=== PATIENT | female | born 1980 | race African-American/Black ===

== ENCOUNTER 2018-03-02 23:17 | Inpatient (IN) | payer MEDICARE ==
[~2018-03-02] VITALS: Ht 180.3 cm; Wt 58.7 kg
[2018-03-02 23:45] VITALS: BP 111/73
[2018-03-03] VITALS (7 sets, daily range): BP systolic 97–135; BP diastolic 51–78
[2018-03-03] MEDS ORDERED: Morphine Sulfate 4mg/ml Inj (IV USE ONLY) IVP ONE
[2018-03-03 00:08] LABS: APPEARANCE,URINE CLEAR; BILIRUBIN, URINE NEGATIVE (NEGATIVE); GLUCOSE, URINE (UA) NEGATIVE (NEGATIVE); KETONES,URINE NEGATIVE (NEGATIVE); NITRITE,URINE NEGATIVE (NEGATIVE); PH,URINE 6.5 (4.5-8.0); PROTEIN,URINE NEGATIVE (NEGATIVE); UROBILINOGEN,URINE 1 MG/DL (0.0-1.0)
[2018-03-03 00:23] LABS: COLOR,URINE YELLOW; LEUKOCYTE ESTERASE ,URINE 1+ (NEGATIVE)
[2018-03-03 00:37] LABS: BASOPHILS % (AUTO) 0.5 % (0.0-2.0); EOSINOPHILS % (AUTO) 1.3 % (0.0-3.0); HEMATOCRIT 38.5 % (37.0-47.0); HEMOGLOBIN 11.7 G/DL (12.0-16.0); LYMPHOCYTES % (AUTO) 24.1 % (20.0-45.0); MEAN CORPUSCULAR VOLUME 74 FL (80-99); MONOCYTES % (AUTO) 10.5 % (1.0-10.0); NEUTROPHILS % (AUTO) 63.6 % (45.0-75.0); PLATELET COUNT 268 K/UL (150-450); RED BLOOD COUNT 5.23 M/UL (4.20-5.40); RED CELL DISTRIBUTION WIDTH 17.3 % (11.6-14.8); WHITE BLOOD COUNT 7.4 K/UL (4.8-10.8)
[2018-03-03 00:51] LABS: ANION GAP 8 mmol/L (5-15); BLOOD UREA NITROGEN 8 mg/dL (7-18); CALCIUM 9.9 MG/DL (8.5-10.1); CARBON DIOXIDE 26 MMOL/L (21-32); CHLORIDE 102 MMOL/L (98-107); CREATININE 1.2 MG/DL (0.55-1.30); SODIUM 136 MMOL/L (136-145)
[2018-03-03 01:01] LABS: ALANINE AMINOTRANSFERASE 66 U/L (12-78); ALBUMIN/GLOBULIN RATIO 0.9 (1.0-2.7); ALKALINE PHOSPHATASE 112 U/L (46-116); ASPARTATE AMINO TRANSFERASE 41 U/L (15-37); BILIRUBIN,TOTAL 0.3 MG/DL (0.2-1.0); CREATINE KINASE 44 U/L (26-308)
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
[2018-03-03] MEDS ORDERED: ZOLOFT100 MG ORAL (02:21)
[2018-03-03] MEDS ORDERED: HYDROCODON-ACE1 EA15 ORAL (02:21)
[2018-03-03] MEDS ORDERED: DIPHENHYDRAMINE PO (02:21)
[2018-03-03] MEDS ORDERED: MONTELUKAST SOD10 MG ORAL (02:21)
[2018-03-03] MEDS ORDERED: ACETAMINOPHEN PO (02:21)
[2018-03-03] MEDS ORDERED: FLUCONAZOLE100 MG ORAL (02:21)
[2018-03-03] MEDS ORDERED: KLONOPIN0.5 MG ORAL (02:21)
[2018-03-03] MEDS ORDERED: ZOFRAN4 M3 ORAL (02:21)
[2018-03-03] MEDS ORDERED: OXYCODONE HCL10 MG ORAL (02:21)
[2018-03-03] MEDS ORDERED: Norco 5mg/325mg tab ORAL PRN ×3 (04:15→15:30)
[2018-03-03] MEDS ORDERED: oxyCODONE 5mg IR tab ORAL PRN ×2 (04:15→05:15)
[2018-03-03] MEDS: Fluconazole 100mg tab ORAL SCH (09:43)
[2018-03-03] MEDS: clonazePAM 0.5mg tab ORAL SCH ×2 (09:43→18:07)
--- NOTE | 2018-03-03 11:34 | Diagnostic Imaging Report ---
Indication: Cough Technique: One view of the chest Comparison: none Findings: Lungs and pleural spaces are clear. Heart size is normal Impression: No acute process
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
--- NOTE | 2018-03-03 15:33 | Consultation ---
History of Present Illness General Date patient seen: Mar 03, 2018 Chief Complaint: Present Illness Allergies: Coded Allergies: CHEESE (Verified Allergy, Unknown, 03/03/18) EGG (Verified Allergy, Unknown, 03/03/18) IBUPROFEN (Verified Adverse Reaction, Unknown, 03/02/18) nausea Medication History Scheduled Acetaminophen/Diphenhydramine (Mapap Pm Caplet), 2 EACH PO THREE TIMES A DAY, ( Reported) Clonazepam* (Klonopin*), 0.5 MG ORAL BID, (Reported) Fluconazole (Fluconazole), 100 MG ORAL DAILY, (Reported) Montelukast Sodium* (Montelukast Sodium*), 10 MG ORAL DAILY, (Reported) Sertraline Hcl* (Zoloft*), 100 MG ORAL BEDTIME, (Reported) Scheduled PRN Hydrocodone/Acetaminophen 5-325* (Hydrocodone/Acetaminophen 5-325*), 1 TAB ORAL Q6H PRN for For Pain, (Reported) Ondansetron* (Zofran*), 4 MG ORAL Q6H PRN for Nausea & Vomiting, (Reported) Oxycodone Hcl* (Oxycodone Hcl*), 10 MG ORAL Q4H PRN for For Pain, (Reported) Patient History Healthcare decision maker Resuscitation status Full Code Advanced Directive on File No Physical Exam Last 24 Hour Vital Signs Date Time Temp Pulse Resp B/P (MAP) Pulse Ox O2 Delivery O2 Flow Rate FiO2 03/03/18 12:00 98.1 76 18 99/51 (67) 100 98.1 03/03/18 09:00 Room Air 03/03/18 08:00 98.2 73 18 99/56 (70) 98 98.2 03/03/18 03:58 98.0 80 18 135/62 (86) 100 98.0 03/03/18 03:32 Room Air 03/03/18 03:16 97.6 75 15 116/72 100 Room Air 03/03/18 03:16 97.6 75 15 116/72 100 Room Air 97.6 03/03/18 02:00 76 13 115/78 100 Room Air 03/03/18 00:34 98.2 03/02/18 23:45 89 16 03/02/18 23:45 98.2 16 111/73 99 98.2 03/02/18 23:21 98.3 89 16 111/73 99 98.2 Intake and Output 03/02/18 03/03/18 19:00 07:00 Intake Total 75 ml Balance 75 ml Intake IV Total 75 ml # Voids 2 Laboratory Tests Test 03/02/18 23:26 03/03/18 00:10 Urine Color Yellow Urine Appearance Clear Urine pH 6.5 (4.5-8.0) Urine Specific [place] 1.010 (1.005-1.035) Urine Protein Negative (NEGATIVE) Urine Glucose (UA) Negative (NEGATIVE) Urine Ketones Negative (NEGATIVE) Urine Blood Negative (NEGATIVE) Urine Nitrite Negative (NEGATIVE) Urine Bilirubin Negative (NEGATIVE) Urine Urobilinogen 1 MG/DL (0.0-1.0) H Urine Leukocyte Esterase 1+ (NEGATIVE) H Urine RBC 0-2 /HPF (0 - 2) Urine WBC 2-4 /HPF (0 - 2) Urine Squamous Epithelial Cells Many /LPF (NONE/OCC) H Urine Bacteria Few /HPF (NONE) Urine HCG, Qualitative Negative (NEGATIVE) White Blood Count 7.4 K/UL (4.8-10.8) Red Blood Count 5.23 M/UL (4.20-5.40) Hemoglobin 11.7 G/DL (12.0-16.0) L Hematocrit 38.5 % (37.0-47.0) Mean Corpuscular Volume 74 FL (80-99) L Mean Corpuscular Hemoglobin 22.4 PG (27.0-31.0) L Mean Corpuscular Hemoglobin Concent 30.5 G/DL (32.0-36.0) L Red Cell Distribution Width 17.3 % (11.6-14.8) H Platelet Count 268 K/UL (150-450) Mean Platelet Volume 8.9 FL (6.5-10.1) Neutrophils (%) (Auto) 63.6 % (45.0-75.0) Lymphocytes (%) (Auto) 24.1 % (20.0-45.0) Monocytes (%) (Auto) 10.5 % (1.0-10.0) H Eosinophils (%) (Auto) 1.3 % (0.0-3.0) Basophils (%) (Auto) 0.5 % (0.0-2.0) Prothrombin Time 10.7 SEC (9.30-11.50) Prothromb Time International Ratio 1.0 (0.9-1.1) Activated Partial Thromboplast Time 30 SEC (23-33) Sodium Level 136 MMOL/L (136-145) Potassium Level 4.0 MMOL/L (3.5-5.1) Chloride Level 102 MMOL/L (98-107) Carbon Dioxide Level 26 MMOL/L (21-32) Anion Gap 8 mmol/L (5-15) Blood Urea Nitrogen 8 mg/dL (7-18) Creatinine 1.2 MG/DL (0.55-1.30) Estimat Glomerular Filtration Rate > 60 mL/min (>60) Glucose Level 85 MG/DL (74-106) Lactic Acid Level 1.50 mmol/L (0.4-2.0) Calcium Level 9.9 MG/DL (8.5-10.1) Total Bilirubin 0.3 MG/DL (0.2-1.0) Aspartate Amino Transf (AST/SGOT) 41 U/L (15-37) H Alanine Aminotransferase (ALT/SGPT) 66 U/L (12-78) Alkaline Phosphatase 112 U/L (46-116) Total Creatine Kinase 44 U/L (26-308) Pro-B-Type Natriuretic Peptide 21 pg/mL (0-125) Total Protein 8.7 G/DL (6.4-8.2) H Albumin 4.0 G/DL (3.4-5.0) Globulin 4.7 g/dL Albumin/Globulin Ratio 0.9 (1.0-2.7) L Lipase 283 U/L (73-393) Height (Feet): 5 Height (Inches): 11.00 Weight (Pounds): 130 Medications Current Medications Medications (Trade) Dose Ordered Sig/Bernadette Route PRN Reason Start Time Stop Time Status Last Admin Dose Admin Acetaminophen/ Hydrocodone Bitart ([place] 5/325) 1 tab Q6H PRN ORAL pain 4-6 03/03/18 05:15 03/10/18 05:14 Clonazepam (KlonoPIN) 0.5 mg BID ORAL 03/03/18 09:00 03/10/18 08:59 03/03/18 09:43 Fluconazole (Diflucan) 100 mg DAILY ORAL 03/03/18 09:00 03/10/18 08:59 03/03/18 09:43 Montelukast Sodium (Singulair) 10 mg QPM ORAL 03/03/18 16:30 04/02/18 16:29 Ondansetron HCl (Zofran) 4 mg Q6H PRN ORAL Nausea & Vomiting 03/03/18 04:15 04/02/18 04:14 Oxycodone HCl (Roxicodone) 10 mg Q4H PRN ORAL pain 7-10 03/03/18 05:15 03/10/18 05:14 03/03/18 05:13 Sertraline HCl (Zoloft) 100 mg BEDTIME ORAL 03/03/18 21:00 04/02/18 20:59 Sodium Chloride 1,000 ml @ 75 mls/hr [id number] IV 03/03/18 04:30 04/02/18 04:29 03/03/18 05:14 Assessment/Plan Assessment/Plan (1) Dysphagia (2) Throat pain (3) H/o Esophagitis (4) Neuropathic pain seen dictated Joss Garcia Mar 03, 2018 15:33
[2018-03-03] MEDS: Montelukast 10mg tablet ORAL SCH (16:40)
[2018-03-03] MEDS: Sertraline 100mg tab ORAL SCH (21:13)
--- NOTE | 2018-03-03 21:45 | Consultation ---
DATE OF CONSULTATION: 03/03/2018 PAIN MANAGEMENT CONSULTATION CONSULTING PHYSICIAN: Gregory Contreras M.D. REFERRING PHYSICIAN: Brent Larkin M.D. PHYSICIAN NON MORSE INTERCEPT TECHNICIAN: Keyla Elkins CHIEF COMPLAINT: Throat pain. HISTORY OF PRESENT ILLNESS: This is a 37-year-old female who is being seen at [facility] for initial comprehensive pain management consultation. The patient was admitted under the care of Dr. Larkin complaining of throat pain, has a history of Jill esophagitis with continued pain in the throat with difficulty swallowing and had been taking fungal medication, however, had continued pain and dysphagia, taking [place] 5/325 mg as needed pain and oxycodone 10 mg tablets as needed, which was recently prescribed in the last month. As per Dr. Persaud last EGD was normal.She reports the pain is acute pain, rating at 8/10, describing the pain as sharp, again worse with swallowing and is here in the hospital requesting IV medications. At this time, I discussed with the patient about using liquid form such as Tylenol with codeine and elixir; however, hospital does not have it in stock, however, the patient is eating soft diet. We explained the patient to use the [place] and oxycodone which will be crushed into applesauce and then administered. We will also add Neurontin 100 mg liquid to help with the reduction of her pain. The patient seems to understand. PAST MEDICAL HISTORY: Asthma,sleep apnea, depression and iron deficiency. PAST SURGICAL HISTORY: Denies. ALLERGIES: Ibuprofen. MEDICATIONS: Klonopin, fluconazole, Montelukast, Zoloft, [place], Zofran and oxycodone. SOCIAL HISTORY: Denies smoking, drinking alcohol, or intravenous drug abuse. REVIEW OF SYSTEMS: Denies rash, fever, chills, sweating, dizziness, drowsiness, blurred vision. She is complaining of sore throat. No shortness of breath or chest pain. No nausea, vomiting, diarrhea, or blood in the stool or urine. No bowel or bladder incontinence. No dysuria. Again, she is complaining of throat pain with dysphagia. PHYSICAL EXAMINATION: GENERAL: Alert, awake, and oriented. VITAL SIGNS: Blood pressure 99/51, heart rate is 76, oxygen saturation is 100%, respiratory rate 18, and temperature 98.1 degrees Fahrenheit. HEENT: PERRLA. NECK: Range of motion is full in all directions. No tenderness to paracervical muscles. No adenopathy. LUNGS: Decreased breath sounds bilaterally. HEART: Regular. ABDOMEN: Benign. BACK: Range of motion is full in flexion and extension. EXTREMITIES: Upper and lower extremity motion is decreased due to the patient's condition. No cyanosis. No clubbing. Sensory is intact. Reflexes are not obtainable. No adenopathy. ASSESSMENT AND PLAN: This is a 37-year-old female with throat pain, dysphagia, history of esophagitis, and neuropathic pain. The patient to be continued on oxycodone and [place] as needed to be crushed and administer with applesauce and as needed for pain. We will start the patient on Neurontin 100 mg liquid 3 times a day and the patient was discussed with Dr. Contreras and concurred. We will follow the patient. Thank you very much for the courtesy of this consultation. Gregory Contreras M.D. SHAHRIAR Elkins DR: MARYLOU JOB#: [id number] CC: JUAN RAMON
[2018-03-04] VITALS: BP 97/56
[2018-03-04 04:00] VITALS: BP 99/60
--- NOTE | 2018-03-04 07:39 | Pulmonology Progress Note ---
Assessment/Plan Assessment/Plan 1. History of malnutrition, however present albumin is normal. 2. History of candidal esophagitis. However repeat endoscopy also normal at [facility]. 3. Asthma, stable. 4. Chronic pain, on oxycodone and [place]. 5. Anxiety, on Zoloft. DISCUSSION: Discussed with the patient and sister at bedside in great detail. I advised them that I have reviewed all of her records at [facility]. I recommended that since she has had a complete workup less than two weeks ago at [facility], I will not initiate a new workup. However, since the pain is an issue, I will consulted Pain Management. I will not involve GI related especially as she has had a complete workup done before. Continue IV fluids, although I do not suspect any dehydration, yet her blood pressure is borderline low this morning. Anticipate discharge home within next 24 hours. Subjective Interval Events: Demanding IV morphine and IV Dilaudud Constitutional: Reports: no symptoms HEENT: Repors: no symptoms Respiratory: Reports: no symptoms Cardiovascular: Reports: no symptoms Gastrointestinal/Abdominal: Reports: no symptoms Allergies: Coded Allergies: CHEESE (Verified Allergy, Unknown, 03/03/18) EGG (Verified Allergy, Unknown, 03/03/18) IBUPROFEN (Verified Adverse Reaction, Unknown, 03/02/18) nausea Objective Last 24 Hour Vital Signs Date Time Temp Pulse Resp B/P (MAP) Pulse Ox O2 Delivery O2 Flow Rate FiO2 03/04/18 04:00 98.2 60 17 99/60 (73) 98 98.2 03/04/18 00:00 98.1 57 18 97/56 (70) 99 98.1 03/03/18 21:00 Room Air 03/03/18 20:00 96.3 61 17 97/59 (72) 100 96.3 03/03/18 16:00 97.2 62 18 101/57 (72) 100 97.2 03/03/18 12:00 98.1 76 18 99/51 (67) 100 98.1 03/03/18 09:00 Room Air 03/03/18 08:00 98.2 73 18 99/56 (70) 98 98.2 Intake and Output 03/03/18 03/04/18 19:00 07:00 Intake Total 825 ml 1020 ml Balance 825 ml 1020 ml Intake Oral 120 ml IV Total 825 ml 900 ml # Voids 4 2 General Appearance: no acute distress HEENT: normocephalic Respiratory/Chest: chest wall non-tender Cardiovascular: normal peripheral pulses Abdomen: normal bowel sounds, soft, non tender Microbiology Date/Time Source Procedure Growth Status 03/03/18 00:15 Blood Blood Culture - Preliminary NO GROWTH AFTER 24 HOURS Resulted 03/03/18 00:10 Blood Blood Culture - Preliminary NO GROWTH AFTER 24 HOURS Resulted Current Medications Medications (Trade) Dose Ordered Sig/Bernadette Route PRN Reason Start Time Stop Time Status Last Admin Dose Admin Acetaminophen/ Hydrocodone Bitart ([place] 5/325) 1 tab Q6H PRN ORAL moderate pain 03/03/18 15:30 03/10/18 15:29 Clonazepam (KlonoPIN) 0.5 mg BID ORAL 03/03/18 09:00 03/10/18 08:59 03/03/18 18:07 Fluconazole (Diflucan) 100 mg DAILY ORAL 03/03/18 09:00 03/10/18 08:59 03/03/18 09:43 Gabapentin (Neurontin) 100 mg TID ORAL 03/03/18 15:30 04/02/18 15:29 03/03/18 16:40 Montelukast Sodium (Singulair) 10 mg QPM ORAL 03/03/18 16:30 04/02/18 16:29 03/03/18 16:40 Ondansetron HCl (Zofran) 4 mg Q6H PRN ORAL Nausea & Vomiting 03/03/18 04:15 04/02/18 04:14 Oxycodone/ Acetaminophen (Percocet 10/325) 1 tab Q4H PRN ORAL severe pain 03/03/18 15:30 03/10/18 15:29 Sertraline HCl (Zoloft) 100 mg BEDTIME ORAL 03/03/18 21:00 04/02/18 20:59 03/03/18 21:13 Sodium Chloride 1,000 ml @ 75 mls/hr [id number] IV 03/03/18 04:30 04/02/18 04:29 03/04/18 06:29 Brent Larkin MD Mar 04, 2018 07:39
[2018-03-04 08:00] VITALS: BP 106/61
--- NOTE | 2018-03-04 09:31 | General Progress Note ---
Assessment/Plan Assessment/Plan (1) Dysphagia (2) Throat pain (3) H/o Esophagitis (4) Neuropathic pain Patient to be continued on Neurontin, [place] and Percocet D/w Dr. Contreras and he concurred. Subjective Date patient seen: Mar 04, 2018 Time patient seen: 08:15 - am Allergies: Coded Allergies: CHEESE (Verified Allergy, Unknown, 03/03/18) EGG (Verified Allergy, Unknown, 03/03/18) IBUPROFEN (Verified Adverse Reaction, Unknown, 03/02/18) nausea Subjective REVIEW OF SYSTEMS: Denies rash, fever, chills, sweating, dizziness, drowsiness, blurred vision. She is complaining of sore throat. No shortness of breath or chest pain. No nausea, vomiting, diarrhea, or blood in the stool or urine. No bowel or bladder incontinence. No dysuria. Again, she is complaining of throat pain with dysphagia. SUBJECTIVE: Patient is in bed showing no signs of pain or distress. Has gotten one does of Neurontin and has not requested [place] or Percocet since yesterday. Objective Last 24 Hour Vital Signs Date Time Temp Pulse Resp B/P (MAP) Pulse Ox O2 Delivery O2 Flow Rate FiO2 03/04/18 08:00 98.4 68 20 106/61 (76) 98 98.4 03/04/18 04:00 98.2 60 17 99/60 (73) 98 98.2 03/04/18 00:00 98.1 57 18 97/56 (70) 99 98.1 03/03/18 21:00 Room Air 03/03/18 20:00 96.3 61 17 97/59 (72) 100 96.3 03/03/18 16:00 97.2 62 18 101/57 (72) 100 97.2 03/03/18 12:00 98.1 76 18 99/51 (67) 100 98.1 Intake and Output 03/03/18 03/04/18 19:00 07:00 Intake Total 825 ml 1020 ml Balance 825 ml 1020 ml Intake Oral 120 ml IV Total 825 ml 900 ml # Voids 4 2 Height (Feet): 5 Height (Inches): 11.00 Weight (Pounds): 129 Objective GENERAL: Alert, awake, and oriented. LUNGS: Decreased breath sounds bilaterally. HEART: S1 S2 Regular. ABDOMEN: Benign. EXTREMITIES: No cyanosis. No clubbing. NEURO: No changes. Joss Garcia Mar 04, 2018 09:31
[2018-03-04] MEDS: Fluconazole 100mg tab ORAL SCH (09:51)
[2018-03-04] MEDS: clonazePAM 0.5mg tab ORAL SCH ×2 (09:51→17:37)
[2018-03-04 12:00] VITALS: BP 96/59
--- NOTE | 2018-03-04 15:58 | Cardiology Report ---
APPROVED REPORT EKG Measurement Heart [id number] Normal sinus rhythm Possible Left atrial enlargement Borderline ECG
[2018-03-04 16:00] VITALS: BP 102/63
[2018-03-04] MEDS: Montelukast 10mg tablet ORAL SCH (16:04)
[2018-03-04 20:27] VITALS: BP 115/70
[2018-03-04] MEDS: Sertraline 100mg tab ORAL SCH (20:59)
[2018-03-05] VITALS: BP 107/61
[2018-03-05 04:00] VITALS: BP 103/63
--- NOTE | 2018-03-05 07:52 | Pulmonology Progress Note ---
Assessment/Plan Assessment/Plan 1. History of malnutrition, however present albumin is normal. 2. History of candidal esophagitis. However repeat endoscopy also normal at [facility]. 3. Asthma, stable. 4. Chronic pain, on oxycodone and [place]. 5. Anxiety, on Zoloft. DISCUSSION: Discussed with the patient and sister at bedside in great detail. I advised them that I have reviewed all of her records at [facility]. I recommended that since she has had a complete workup less than two weeks ago at [facility], I will not initiate a new workup. However, since the pain is an issue, I will consulted Pain Management. I will not involve GI related especially as she has had a complete workup done before. Continue IV fluids, although I do not suspect any dehydration, yet her blood pressure is borderline low this morning. Anticipate discharge home today. It appears she wants to be in the hospital as she cannot afford to purchase pain medications from pharmacy. She has the Rx's at home Subjective Interval Events: None new. Tolerating PO's Constitutional: Reports: no symptoms HEENT: Repors: no symptoms Respiratory: Reports: no symptoms Cardiovascular: Reports: no symptoms Gastrointestinal/Abdominal: Reports: no symptoms Genitourinary: Reports: no symptoms Neurologic: Reports: no symptoms Allergies: Coded Allergies: CHEESE (Verified Allergy, Unknown, 03/03/18) EGG (Verified Allergy, Unknown, 03/03/18) IBUPROFEN (Verified Adverse Reaction, Unknown, 03/02/18) nausea Objective Last 24 Hour Vital Signs Date Time Temp Pulse Resp B/P (MAP) Pulse Ox O2 Delivery O2 Flow Rate FiO2 03/05/18 04:00 97.6 57 18 103/63 (76) 100 97.6 03/05/18 00:00 98.2 61 18 107/61 (76) 100 98.2 03/04/18 20:27 97.9 61 18 115/70 (85) 100 97.9 03/04/18 20:16 Room Air 03/04/18 16:00 97.9 60 19 102/63 (76) 99 97.9 63 03/04/18 12:00 97.9 63 20 96/59 (71) 100 97.9 63 03/04/18 09:00 Room Air 03/04/18 08:00 98.4 68 20 106/61 (76) 98 98.4 Intake and Output 03/04/18 03/05/18 19:00 07:00 Intake Total 1700 ml 850 ml Balance 1700 ml 850 ml Intake Oral 800 ml IV Total 900 ml 850 ml # Voids 2 4 General Appearance: no acute distress HEENT: normocephalic Respiratory/Chest: chest wall non-tender, lungs clear Cardiovascular: normal peripheral pulses, normal rate Microbiology Date/Time Source Procedure Growth Status 03/03/18 00:15 Blood Blood Culture - Preliminary NO GROWTH AFTER 48 HOURS Resulted 03/03/18 00:10 Blood Blood Culture - Preliminary NO GROWTH AFTER 48 HOURS Resulted Current Medications Medications (Trade) Dose Ordered Sig/Bernadette Route PRN Reason Start Time Stop Time Status Last Admin Dose Admin Acetaminophen/ Hydrocodone Bitart ([place] 5/325) 1 tab Q6H PRN ORAL moderate pain 03/03/18 15:30 03/10/18 15:29 Clonazepam (KlonoPIN) 0.5 mg BID ORAL 03/03/18 09:00 03/10/18 08:59 03/04/18 17:37 Fluconazole (Diflucan) 100 mg DAILY ORAL 03/03/18 09:00 03/10/18 08:59 03/04/18 09:51 Gabapentin (Neurontin) 100 mg TID ORAL 03/03/18 15:30 04/02/18 15:29 03/04/18 17:37 Montelukast Sodium (Singulair) 10 mg QPM ORAL 03/03/18 16:30 04/02/18 16:29 03/04/18 16:04 Ondansetron HCl (Zofran) 4 mg Q6H PRN ORAL Nausea & Vomiting 03/03/18 04:15 04/02/18 04:14 Oxycodone/ Acetaminophen (Percocet 10/325) 1 tab Q4H PRN ORAL severe pain 03/03/18 15:30 03/10/18 15:29 Sertraline HCl (Zoloft) 100 mg BEDTIME ORAL 03/03/18 21:00 04/02/18 20:59 03/04/18 20:59 Sodium Chloride 1,000 ml @ 75 mls/hr [id number] IV 03/03/18 04:30 04/02/18 04:29 03/04/18 20:59 Brent Larkin MD Mar 05, 2018 07:52
[2018-03-05 08:00] VITALS: BP 106/54
[2018-03-05] MEDS: clonazePAM 0.5mg tab ORAL SCH ×2 (08:25→18:52)
[2018-03-05] MEDS: Fluconazole 100mg tab ORAL SCH (08:25)
[2018-03-05 11:33] VITALS: BP 97/55
--- NOTE | 2018-03-05 14:16 | General Progress Note ---
Assessment/Plan Assessment/Plan (1) Dysphagia (2) Throat pain (3) H/o Esophagitis (4) Neuropathic pain Patient to be continued on Neurontin, [place] and Percocet D/w Dr. Contreras and he concurred. Subjective Date patient seen: Mar 05, 2018 Time patient seen: 01:30 - pm Allergies: Coded Allergies: CHEESE (Verified Allergy, Unknown, 03/03/18) EGG (Verified Allergy, Unknown, 03/03/18) IBUPROFEN (Verified Adverse Reaction, Unknown, 03/02/18) nausea Subjective REVIEW OF SYSTEMS: Denies rash, fever, chills, sweating, dizziness, drowsiness, blurred vision. She is complaining of sore throat. No shortness of breath or chest pain. No nausea, vomiting, diarrhea, or blood in the stool or urine. No bowel or bladder incontinence. No dysuria. Again, she is complaining of throat pain with dysphagia. SUBJECTIVE: Patient is sitting in bed continues to show no signs of pain or distress and has not requested the [place] or Percocet for her pain. She was advised to take the [place] or Percocet for her pain if she is c/o pain, pt seems to understand. Objective Last 24 Hour Vital Signs Date Time Temp Pulse Resp B/P (MAP) Pulse Ox O2 Delivery O2 Flow Rate FiO2 03/05/18 11:33 98.0 100 20 97/55 (69) 97 98.0 03/05/18 08:15 Room Air 03/05/18 08:00 97.9 54 19 106/54 (71) 97 97.9 03/05/18 04:00 97.6 57 18 103/63 (76) 100 97.6 03/05/18 00:00 98.2 61 18 107/61 (76) 100 98.2 03/04/18 20:27 97.9 61 18 115/70 (85) 100 97.9 03/04/18 20:16 Room Air 03/04/18 16:00 97.9 60 19 102/63 (76) 99 97.9 63 Intake and Output 03/04/18 03/05/18 19:00 07:00 Intake Total 1700 ml 850 ml Balance 1700 ml 850 ml Intake Oral 800 ml IV Total 900 ml 850 ml # Voids 2 4 Height (Feet): 5 Height (Inches): 11.00 Weight (Pounds): 129 Objective GENERAL: Alert, awake, and oriented. LUNGS: Decreased breath sounds bilaterally. HEART: S1 S2 Regular. ABDOMEN: Benign. EXTREMITIES: No cyanosis. No clubbing. NEURO: No changes. Joss Garcia Mar 05, 2018 14:16
[2018-03-05 15:44] VITALS: BP 94/59
--- NOTE | 2018-03-05 15:57 | Diagnostic Imaging Report ---
APPROVED REPORT CPT Code: 63535 Present Symptoms Lower Extremity Pain: Bilateral BILATERAL: Imaging reveals a patent deep venous system bilaterally. There is no evidence of thrombus within the femoral, popliteal or tibial segments. The greater saphenous veins are also within normal limits. Doppler indicates normal spontaneous flow within these segments.
[2018-03-05] MEDS: Montelukast 10mg tablet ORAL SCH (18:52)
[2018-03-05 20:12] VITALS: BP 103/60
[2018-03-05] MEDS: Sertraline 100mg tab ORAL SCH (21:48)
[2018-03-06 00:49] VITALS: BP 111/63
[2018-03-06 08:00] VITALS: BP 96/90
--- NOTE | 2018-03-06 08:47 | Pulmonology Progress Note ---
Assessment/Plan Assessment/Plan 1. History of malnutrition, however present albumin is normal. 2. History of candidal esophagitis. However repeat endoscopy also normal at [facility]. 3. Asthma, stable. 4. Chronic pain, on oxycodone and [place]. 5. Anxiety, on Zoloft. DISCUSSION: Discussed with the patient and sister at bedside in great detail. I advised them that I have reviewed all of her records at [facility]. I recommended that since she has had a complete workup less than two weeks ago at [facility], I will not initiate a new workup. However, since the pain is an issue, I will consulted Pain Management. I will not involve GI related especially as she has had a complete workup done before. Continue IV fluids, although I do not suspect any dehydration, yet her blood pressure is borderline low this morning. Anticipate discharge home again today. Yesterday she appealed discharge It appears she wants to be in the hospital as she cannot afford to purchase pain medications from pharmacy. She has the Rx's at home Subjective Interval Events: None Constitutional: Reports: no symptoms HEENT: Repors: no symptoms Respiratory: Reports: no symptoms Cardiovascular: Reports: no symptoms Gastrointestinal/Abdominal: Reports: no symptoms Genitourinary: Reports: no symptoms Neurologic: Reports: no symptoms Allergies: Coded Allergies: CHEESE (Verified Allergy, Unknown, 03/03/18) EGG (Verified Allergy, Unknown, 03/03/18) IBUPROFEN (Verified Adverse Reaction, Unknown, 03/02/18) nausea Objective Last 24 Hour Vital Signs Date Time Temp Pulse Resp B/P (MAP) Pulse Ox O2 Delivery O2 Flow Rate FiO2 03/06/18 00:49 97.7 49 17 111/63 (79) 99 97.7 03/05/18 21:00 Room Air 03/05/18 20:12 99.0 59 15 103/60 (74) 99 99.0 03/05/18 15:44 98.4 58 21 94/59 (71) 99 98.4 03/05/18 11:33 98.0 100 20 97/55 (69) 97 98.0 Intake and Output 03/05/18 03/06/18 19:00 07:00 Intake Total 1035 ml 1065 ml Balance 1035 ml 1065 ml Intake Oral 960 ml 240 ml IV Total 75 ml 825 ml # Voids 3 # Bowel Movements 1 General Appearance: no acute distress HEENT: normocephalic Respiratory/Chest: chest wall non-tender, lungs clear Cardiovascular: normal peripheral pulses Abdomen: normal bowel sounds Microbiology Date/Time Source Procedure Growth Status 03/03/18 09:35 Nasal Nares MRSA Culture - Final NO METHICILLIN RESISTANT STAPH AUREUS... Complete Current Medications Medications (Trade) Dose Ordered Sig/Bernadette Route PRN Reason Start Time Stop Time Status Last Admin Dose Admin Acetaminophen/ Hydrocodone Bitart ([place] 5/325) 1 tab Q6H PRN ORAL moderate pain 03/03/18 15:30 03/10/18 15:29 Clonazepam (KlonoPIN) 0.5 mg BID ORAL 03/03/18 09:00 03/10/18 08:59 03/05/18 18:52 Fluconazole (Diflucan) 100 mg DAILY ORAL 03/03/18 09:00 03/10/18 08:59 03/05/18 08:25 Gabapentin (Neurontin) 100 mg TID ORAL 03/03/18 15:30 04/02/18 15:29 03/05/18 18:52 Montelukast Sodium (Singulair) 10 mg QPM ORAL 03/03/18 16:30 04/02/18 16:29 03/05/18 18:52 Ondansetron HCl (Zofran) 4 mg Q6H PRN ORAL Nausea & Vomiting 03/03/18 04:15 04/02/18 04:14 Oxycodone/ Acetaminophen (Percocet 10/325) 1 tab Q4H PRN ORAL severe pain 03/03/18 15:30 03/10/18 15:29 Sertraline HCl (Zoloft) 100 mg BEDTIME ORAL 03/03/18 21:00 04/02/18 20:59 03/05/18 21:48 Sodium Chloride 1,000 ml @ 75 mls/hr [id number] IV 03/03/18 04:30 04/02/18 04:29 03/05/18 23:33 Brent Larkin MD Mar 06, 2018 08:47
[2018-03-06] MEDS: Fluconazole 100mg tab ORAL SCH (09:32)
[2018-03-06] MEDS: clonazePAM 0.5mg tab ORAL SCH (09:32)
--- NOTE | 2018-03-06 09:35 | General Progress Note ---
Assessment/Plan Assessment/Plan (1) Dysphagia (2) Throat pain (3) H/o Esophagitis (4) Neuropathic pain Patient to be continued on Neurontin, [place] and Percocet D/w Dr. Contreras and he concurred. Subjective Date patient seen: Mar 06, 2018 Time patient seen: 08:45 - am Allergies: Coded Allergies: CHEESE (Verified Allergy, Unknown, 03/03/18) EGG (Verified Allergy, Unknown, 03/03/18) IBUPROFEN (Verified Adverse Reaction, Unknown, 03/02/18) nausea Subjective REVIEW OF SYSTEMS: Denies rash, fever, chills, sweating, dizziness, drowsiness, blurred vision. She is complaining of sore throat. No shortness of breath or chest pain. No nausea, vomiting, diarrhea, or blood in the stool or urine. No bowel or bladder incontinence. No dysuria. Again, she is complaining of throat pain with dysphagia. SUBJECTIVE: Patient is laying in bed showing no signs of pain or distress. Has not requested any [place] or Percocet since admission. Will be discharged home as per yield clerk and no Rx needed due to patient having it at home and will go to pharmacy to fill it. Objective Last 24 Hour Vital Signs Date Time Temp Pulse Resp B/P (MAP) Pulse Ox O2 Delivery O2 Flow Rate FiO2 03/06/18 08:30 Room Air 03/06/18 08:00 98.3 53 20 96/90 (92) 99 98.3 03/06/18 00:49 97.7 49 17 111/63 (79) 99 97.7 03/05/18 21:00 Room Air 03/05/18 20:12 99.0 59 15 103/60 (74) 99 99.0 03/05/18 15:44 98.4 58 21 94/59 (71) 99 98.4 03/05/18 11:33 98.0 100 20 97/55 (69) 97 98.0 Intake and Output 03/05/18 03/06/18 19:00 07:00 Intake Total 1035 ml 1065 ml Balance 1035 ml 1065 ml Intake Oral 960 ml 240 ml IV Total 75 ml 825 ml # Voids 3 # Bowel Movements 1 Height (Feet): 5 Height (Inches): 11.00 Weight (Pounds): 129 Objective GENERAL: Alert, awake, and oriented. LUNGS: Decreased breath sounds bilaterally. HEART: S1 S2 Regular. ABDOMEN: Benign. EXTREMITIES: No cyanosis. No clubbing. NEURO: No changes. Joss Garcia Mar 06, 2018 09:35
[2018-03-06 11:33] VITALS: BP 100/54
[2018-03-06 16:00] VITALS: BP 101/76
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
== END 2018-03-06 16:30 | disposition home or self-care (01) | DRG 392 ==
LOC: EMR 23:45 → 4E 03-03 00:28 → EDBEDREQ 03-03 01:41
DX: R13.10 Dysphagia, unspecified (principal); R07.0 Pain in throat; J45.909 Unspecified asthma, uncomplicated; Z88.6 Allergy status to analgesic agent; R11.2 Nausea with vomiting, unspecified; G62.9 Polyneuropathy, unspecified; G89.29 Other chronic pain; F41.9 Anxiety disorder, unspecified; G47.33 Obstructive sleep apnea (adult) (pediatric)
CPT/HCPCS: 36415; 71045; 80053; 81003; 81025; 82550; 83605; 83690; 83880; 85025; 85610; 85730; 86900; 86901; 87040; 87081; 93005; 93970; 96361; 96374; 96375; 99285; J2405

== ENCOUNTER 2018-03-20 23:51 | Emergency (ER) | payer MEDICARE ==
[~2018-03-20] VITALS: Ht 180.3 cm; Wt 52.2 kg
[~2018-03-20 23:51] MED LIST: ACETAMINOPHEN PO; DIPHENHYDRAMINE PO; FLUCONAZOLE100 MG ORAL; HYDROCODON-ACE1 EA15 ORAL; KLONOPIN0.5 MG ORAL; MONTELUKAST SOD10 MG ORAL; OXYCODONE HCL10 MG ORAL; ZOFRAN4 M3 ORAL; ZOLOFT100 MG ORAL
[2018-03-21 00:05] VITALS: BP 122/77
[2018-03-21 00:30] VITALS: BP_SYST 120; BP_SYST 122; BP_DIAS 74; BP_DIAS 77
--- NOTE | 2018-03-21 00:30 | Emergency Room Report ---
History of Present Illness General Chief Complaint: Upper Respiratory Illness Source: Patient Present Illness HPI Is a 37-year-old female with a history of asthma, chronic pain and also candidal esophagitis. She was recently admitted here about 2 weeks ago for hemoptysis and throat pain. She was also recently admitted to [facility] for the same thing. She had endoscopy that was negative. She also had an complete cardiac workup for chest pain including EKG and VQ scan. Patient said that she saw couple days ago. She finished some antifungal medication. She claimed that she had fungal infection of her throat. She complaining of hemoptysis and pain. Similar symptom in the past. If we swallowing. No fever chills but no nausea no vomiting. No other complaint. She walked in here with 2 other people who also checked in for different pain complaint. One of them decided not to checked in. Pain is 9 out of 10. Allergies: Coded Allergies: ACETAMINOPHEN (Verified Allergy, Unknown, 03/21/18) hives CHEESE (Verified Allergy, Unknown, 03/21/18) EGG (Verified Allergy, Unknown, 03/21/18) IBUPROFEN (Verified Adverse Reaction, Unknown, 03/21/18) nausea Patient History Past Medical History: see triage record, old chart reviewed Past Surgical History: other Pertinent Family History: none Social History: Denies: smoking Last Menstrual Period: 03/20/18 Now: No Immunizations: other Reviewed Nursing Documentation: PMH: Agreed; PSxH: Agreed Nursing Documentation-PM Past Medical History: No History, Except For Hx Asthma: Yes Review of Systems Eye: Denies: eye pain, blurred vision ENT: Reports: throat pain; Denies: ear pain, nose congestion, throat swelling Respiratory: Denies: cough, shortness of breath Cardiovascular: Denies: chest pain, palpitations Gastrointestinal: Denies: abdominal pain, diarrhea, nausea, vomiting Musculoskeletal: Denies: back pain, joint pain Skin: Denies: rash Neurological: Denies: headache, numbness Endocrine: Denies: increased thirst, increased urine Hematologic/Lymphatic: Denies: easy bruising All Other Systems: negative except mentioned in HPI Physical Exam Vital Signs Date Time Temp Pulse Resp B/P (MAP) Pulse Ox O2 Delivery O2 Flow Rate FiO2 03/21/18 00:01 97.9 88 16 122/85 98 Room Air 97.9 vitals normal Sp02 EP Interpretation: reviewed, normal General Appearance: well appearing, no apparent distress, alert Head: normocephalic, atraumatic Eyes: bilateral eye PERRL, bilateral eye EOMI ENT: hearing grossly normal, normal pharynx, other - no thrush or exudates Neck: full range of motion, supple, no meningismus Respiratory: chest non-tender, lungs clear, normal breath sounds Cardiovascular #1: regular rate, rhythm, no murmur Gastrointestinal: normal bowel sounds, non tender, no mass, no organomegaly, no bruit, non-distended Musculoskeletal: back normal, gait/station normal, normal range of motion Psychiatric: mood/affect normal Skin: warm/dry Medical Decision Making Diagnostic Impression: Primary Impression: Hemoptysis Additional Impressions: Throat pain in adult Chronic pain Qualified Codes: G89.4 - Chronic pain syndrome ER Course Patient presents with chronic pain. Similar symptom in the past but she is been worked up and no evidence of any acute process going on. We'll discharge home. She is currently seen pain management. She keep asking the nurse for pain medication. I would not give her any narcotic here. Last Vital Signs Date Time Temp Pulse Resp B/P (MAP) Pulse Ox O2 Delivery O2 Flow Rate FiO2 03/21/18 00:05 73 17 Room Air 03/21/18 00:05 97.9 122/77 100 97.9 Status: unchanged Disposition: HOME, SELF-CARE Condition: Stable Referrals: NOT CHOSEN IPA/MD,REFERRING (PCP) Additional Instructions: Follow-up with your doctor in 7 days. Goes to pain management. Return if symptom worsen. ESTEVAN LOGAN M.D. Mar 21, 2018 00:30
== END 2018-03-21 00:38 | disposition home or self-care (01) ==
LOC: EMR 03-21 00:16
DX: R04.2 Hemoptysis (principal); R07.0 Pain in throat; G89.4 Chronic pain syndrome; J45.909 Unspecified asthma, uncomplicated; Z88.6 Allergy status to analgesic agent; Z91.012 Allergy to eggs; Z91.011 Allergy to milk products
CPT/HCPCS: 99282

== ENCOUNTER 2018-05-13 20:54 | Emergency (ER) | payer MEDICARE, MEDICAID ==
[~2018-05-13] VITALS: Ht 180.3 cm; Wt 61.2 kg
[2018-05-13 21:05] VITALS: BP 118/76
[2018-05-13 23:06] LABS: BASOPHILS % (AUTO) 0.4 % (0.0-2.0); HEMATOCRIT 38.8 % (37.0-47.0); HEMOGLOBIN 12.2 G/DL (12.0-16.0); LYMPHOCYTES % (AUTO) 23.1 % (20.0-45.0); MEAN CORPUSCULAR VOLUME 81 FL (80-99); MONOCYTES % (AUTO) 6.4 % (1.0-10.0); NEUTROPHILS % (AUTO) 69.1 % (45.0-75.0); PLATELET COUNT 201 K/UL (150-450); RED BLOOD COUNT 4.79 M/UL (4.20-5.40); RED CELL DISTRIBUTION WIDTH 15.3 % (11.6-14.8); WHITE BLOOD COUNT 4.6 K/UL (4.8-10.8)
--- NOTE | 2018-05-13 23:28 | Emergency Room Report ---
History of Present Illness General Chief Complaint: Pain Source: Patient Present Illness HPI Is a 38-year-old female with a history of chronic pain. She presents with chief complaint of chest pain, vomiting, vomiting blood. This is an ongoing issue with her. She said she has esophagitis. She wants pain medication. Pain is 10 out of 10. No fever or chilll. Constant nausea. No radiation. Nothing made it better. Eating and drinking makes it worse. Denies any other complaint. He was at another hospital just last week. Allergies: Coded Allergies: ACETAMINOPHEN (Verified Allergy, Unknown, 03/21/18) hives CHEESE (Verified Allergy, Unknown, 03/21/18) EGG (Verified Allergy, Unknown, 03/21/18) IBUPROFEN (Verified Adverse Reaction, Unknown, 03/21/18) nausea Patient History Past Medical History: see triage record, old chart reviewed Past Surgical History: other Pertinent Family History: none Social History: Denies: smoking Last Menstrual Period: 03/31/18 Now: No : 0 Para: 0 Immunizations: other Reviewed Nursing Documentation: PMH: Agreed; PSxH: Agreed Nursing Documentation-PMH Past Medical History: No History, Except For Hx Asthma: Yes Review of Systems Eye: Denies: eye pain, blurred vision ENT: Denies: ear pain, nose congestion, throat swelling Respiratory: Denies: cough, shortness of breath Cardiovascular: Reports: chest pain; Denies: palpitations Gastrointestinal: Reports: nausea, vomiting; Denies: abdominal pain, diarrhea Musculoskeletal: Denies: back pain, joint pain Skin: Denies: rash Neurological: Denies: headache, numbness Endocrine: Denies: increased thirst, increased urine Hematologic/Lymphatic: Denies: easy bruising All Other Systems: negative except mentioned in HPI Physical Exam Vital Signs Date Time Temp Pulse Resp B/P (MAP) Pulse Ox O2 Delivery O2 Flow Rate FiO2 05/13/18 20:56 98.2 65 15 118/76 Room Air vitals normal Sp02 EP Interpretation: reviewed, normal General Appearance: well appearing, no apparent distress, alert Head: normocephalic, atraumatic Eyes: bilateral eye PERRL, bilateral eye EOMI ENT: hearing grossly normal, normal pharynx Neck: full range of motion, supple, no meningismus Respiratory: chest non-tender, lungs clear, normal breath sounds Cardiovascular #1: regular rate, rhythm, no murmur Gastrointestinal: normal bowel sounds, non tender, no mass, no organomegaly, no bruit, non-distended Musculoskeletal: back normal, gait/station normal, normal range of motion Psychiatric: mood/affect normal Skin: warm/dry Medical Decision Making Diagnostic Impression: Primary Impression: Hematemesis Qualified Codes: K92.0 - Hematemesis Additional Impression: Pain ER Course She presents with chronic pain and hemoptysis. Hemoglobin is stable and at baseline. This is a chronic issue. You know she said she is vomiting constantly, no vomiting for the last to 3 hours and she's been here. She is active and laughing. We'll discharge home. Last Vital Signs Date Time Temp Pulse Resp B/P (MAP) Pulse Ox O2 Delivery O2 Flow Rate FiO2 05/13/18 20:56 98.2 65 15 118/76 Room Air Status: improved Disposition: HOME, SELF-CARE Condition: Stable Referrals: NON PHYSICIAN (PCP) Additional Instructions: Follow-up your doctor in 7 days. Return if worse. Antonio Garcia MD May 13, 2018 23:28
[2018-05-13 23:35] VITALS: BP 116/72
== END 2018-05-13 23:35 | disposition home or self-care (01) ==
LOC: EMR 21:30
DX: K92.0 Hematemesis (principal); R07.9 Chest pain, unspecified; R04.2 Hemoptysis; M79.10 Myalgia, unspecified site; J45.909 Unspecified asthma, uncomplicated; G89.29 Other chronic pain; Z91.012 Allergy to eggs; Z91.011 Allergy to milk products; Z88.8 Allergy status to other drugs, medicaments and biological substances
CPT/HCPCS: 36415; 85025; 99283

== ENCOUNTER 2018-08-21 23:11 | Emergency (ER) | payer MEDICARE, MEDICAID ==
[~2018-08-21] VITALS: Ht 180.3 cm; Wt 61.2 kg
[2018-08-21] MEDS ORDERED: ALBUTEROL SULF8.5 GM INH (23:24)
[2018-08-21] MEDS ORDERED: IRON325 M1 PO (23:24)
--- NOTE | 2018-08-21 23:28 | NUR ---
ED Nurse Note: Patient walk in c/o chest pain radiating to left arm, diarrhea, vomiting for 2 days. Patient reports emesis as undigested food. AO4. NAD VSS
[2018-08-21 23:30] VITALS: BP 116/77
--- NOTE | 2018-08-21 23:44 | NUR ---
Pt c/o chest pain, ekg was done, original was given to Dr flores, no order was placed.
[2018-08-21] MEDS ORDERED: Mylanta II UD 30ml ORAL ONE (23:45)
[2018-08-21 23:58] VITALS: BP 116/77
--- NOTE | 2018-08-21 23:58 | NUR ---
ED Nurse Note: Patient cleared cleared for discharge per ERMD. AO4. VSS. Patient given prescriptions and discharge instructions; verbalized understanding; refused to sign discharge papers. ID removed. Patient ambulated steady out of ED with all belongings.
--- NOTE | 2018-08-22 00:04 | Emergency Room Report ---
History of Present Illness General Chief Complaint: Chest Pain Source: Patient, Medical Record Present Illness HPI Is a 38-year-old female who has a history of esophagitis and chronic pain syndrome. She is well-known to me. She presents with chief complaint of nausea vomiting and diarrhea. Also with chest pain. This is a chronic issue for her. She has multiple workup is negative. She said that she had nausea and vomiting today. No blood in it. Did not take any medicine for now with chest pain. Pain is to epigastric area. No radiation. Pain is 10 out of 10. Denies any other complaint. Allergies: Coded Allergies: ACETAMINOPHEN (Verified Allergy, Unknown, 03/21/18) hives CHEESE (Verified Allergy, Unknown, 03/21/18) EGG (Verified Allergy, Unknown, 03/21/18) IBUPROFEN (Verified Adverse Reaction, Unknown, 03/21/18) nausea Uncoded Allergies: GI COCKTAIL (Allergy, Unknown, 08/21/18) Patient History Past Medical History: see triage record, old chart reviewed Past Surgical History: none Pertinent Family History: none Social History: Denies: smoking Last Menstrual Period: 08/16/2018 Now: No Immunizations: other Reviewed Nursing Documentation: PMH: Agreed; PSxH: Agreed Nursing Documentation-PMH Past Medical History: No History, Except For Hx Asthma: Yes Review of Systems Eye: Denies: eye pain, blurred vision ENT: Denies: ear pain, nose congestion, throat swelling Respiratory: Denies: cough, shortness of breath Cardiovascular: Reports: chest pain; Denies: palpitations Gastrointestinal: Reports: abdominal pain, diarrhea, nausea, vomiting Musculoskeletal: Denies: back pain, joint pain Skin: Denies: rash Neurological: Denies: headache, numbness Endocrine: Denies: increased thirst, increased urine Hematologic/Lymphatic: Denies: easy bruising All Other Systems: negative except mentioned in HPI Physical Exam Vital Signs Date Time Temp Pulse Resp B/P (MAP) Pulse Ox O2 Delivery O2 Flow Rate FiO2 08/21/18 23:20 98.2 81 16 116/77 100 Room Air vitals normal Sp02 EP Interpretation: reviewed, normal General Appearance: no apparent distress, alert, thin Head: normocephalic, atraumatic Eyes: bilateral eye PERRL, bilateral eye EOMI ENT: hearing grossly normal, normal pharynx Neck: full range of motion, supple, no meningismus Respiratory: chest non-tender, lungs clear, normal breath sounds Cardiovascular #1: regular rate, rhythm, no murmur Gastrointestinal: normal bowel sounds, non tender, no mass, no organomegaly, no bruit, non-distended Musculoskeletal: back normal, gait/station normal, normal range of motion Neurologic: alert, oriented x3 Psychiatric: mood/affect normal Skin: warm/dry Medical Decision Making Diagnostic Impression: Primary Impression: Chest pain Qualified Codes: R07.9 - Chest pain, unspecified Additional Impressions: Chronic pain Qualified Codes: G89.4 - Chronic pain syndrome Opioid dependence Qualified Codes: F11.20 - Opioid dependence, uncomplicated ER Course Patient presents with chronic pain. She was not happy that I only offer her Maalox. She wanted Dilaudid. Explained to her that by coming here for any IV narcotics. We'll discharge home. EKG is unremarkable. EKG Diagnostic Results Rate: normal Rhythm: NSR ST Segments: no acute changes ASA given to the pt in ED: No - noncardiac Last Vital Signs Date Time Temp Pulse Resp B/P (MAP) Pulse Ox O2 Delivery O2 Flow Rate FiO2 08/21/18 23:20 98.2 81 16 116/77 100 Room Air Status: improved Disposition: HOME, SELF-CARE Condition: Stable Patient Instructions: Nonspecific Chest Pain Antonio Garcia MD Aug 22, 2018 00:04
== END 2018-08-21 23:58 | disposition home or self-care (01) ==
LOC: EMR 23:50
DX: R07.9 Chest pain, unspecified (principal); G89.29 Other chronic pain; F11.20 Opioid dependence, uncomplicated; R19.7 Diarrhea, unspecified; R11.2 Nausea with vomiting, unspecified; J45.909 Unspecified asthma, uncomplicated; Z88.6 Allergy status to analgesic agent; Z91.012 Allergy to eggs
CPT/HCPCS: 99282

== ENCOUNTER 2019-01-16 02:59 | Emergency (ER) | payer MEDICAID, MEDICARE ==
[~2019-01-16] VITALS: Ht 180.3 cm; Wt 61.2 kg
[~2019-01-16 02:59] MED LIST changes: +ALBUTEROL SULF8.5 GM INH; +IRON325 M1 PO
[2019-01-16 03:10] VITALS: BP 102/70
--- NOTE | 2019-01-16 03:10 | NUR ---
ER Nurse Note: Pt came from home c/o generlized body pain since 01/13/2019. Pt stated she has ankle pain from unk source, pain in her arms and back 8/10 pain, pain in her chest. EKG done by nuclear test technicianPAPA russo. Pt a&ox4, VSS, no signs of acute distress or resp distress. Pt ambulatory. Will continue to [facility].
[2019-01-16] MEDS ORDERED: Albuterol/Ipratropium 3ml neb HHN ONE (04:00)
--- NOTE | 2019-01-16 04:10 | NUR ---
ED Nurse Note: Pt states she cannot provide urine at this time. will try again.
[2019-01-16 05:03] LABS: APPEARANCE,URINE SLIGHTLY CLOUDY; BILIRUBIN, URINE NEGATIVE (NEGATIVE); COLOR,URINE PALE YELLOW; GLUCOSE, URINE (UA) NEGATIVE (NEGATIVE); KETONES,URINE NEGATIVE (NEGATIVE); LEUKOCYTE ESTERASE ,URINE 3+ (NEGATIVE); NITRITE,URINE NEGATIVE (NEGATIVE); PH,URINE 8 (4.5-8.0); PROTEIN,URINE NEGATIVE (NEGATIVE); UROBILINOGEN,URINE NORMAL MG/DL (0.0-1.0)
--- NOTE | 2019-01-16 05:54 | NUR ---
ER Nurse Note: Pt asleep; VSS, no signs of distress. All orders completed per ERMD orders. Pt calm, cooperative. All safety measures met; will continue to [facility].
[2019-01-16 05:55] VITALS: BP 110/72
[2019-01-16] MEDS ORDERED: OMEPRAZOLE20 M2 ORAL (06:17)
[2019-01-16] MEDS ORDERED: PREDNISONE20 MG ORAL (06:17)
[2019-01-16] MEDS ORDERED: METRONIDAZOLE500 MG ORAL (06:17)
--- NOTE | 2019-01-16 06:26 | Emergency Room Report ---
History of Present Illness General Chief Complaint: Pain Source: Patient Present Illness HPI Patient is a 38-year-old female presented after increased chest discomfort as well as vomiting as well as diarrhea. Patient reports of increased watery stools. She reports having increased discomfort to her chest. She also reports having some increased lower extremity discomfort. She denies any recent trauma. She had not been having any hematemesis or bloody stools. She had no recent intercourse and states that she is not .Patient denies any vaginal discharge. She states that she had worsening chest pain with recumbent position as well as with deep breaths. Had prior history of asthma. She is currently on albuterol as well as steroid inhaler. Allergies: Coded Allergies: ACETAMINOPHEN (Verified Allergy, Unknown, 03/21/18) hives CHEESE (Verified Allergy, Unknown, 03/21/18) EGG (Verified Allergy, Unknown, 03/21/18) IBUPROFEN (Verified Adverse Reaction, Unknown, 03/21/18) nausea Uncoded Allergies: GI COCKTAIL (Allergy, Unknown, 08/21/18) Patient History Past Medical History: see triage record Last Menstrual Period: 11/2018 Now: No Reviewed Nursing Documentation: PMH: Agreed; PSxH: Agreed Nursing Documentation-PMH Hx Asthma: Yes Review of Systems All Other Systems: negative except mentioned in HPI Physical Exam Vital Signs Date Time Temp Pulse Resp B/P (MAP) Pulse Ox O2 Delivery O2 Flow Rate FiO2 01/16/19 03:02 98.4 100 18 99/68 (78) 96 Room Air 01/16/19 04:15 21 General Appearance: well appearing, no apparent distress, alert, GCS 15 Head: normocephalic, atraumatic ENT: hearing grossly normal, normal voice Neck: full range of motion, supple Respiratory: no respiratory distress, speaking full sentences Cardiovascular #1: normal inspection Musculoskeletal: no calf tenderness Neurologic: normal gait Psychiatric: mood/affect normal Skin: no rash Medical Decision Making Diagnostic Impression: Primary Impression: Chest pain ER Course Patient presented for chest pain. Differential diagnosis included but was not limited to acute coronary syndrome, pulmonary embolism, pneumonia, aortic dissection, shingles, pneumothorax, aortic dissection, esophageal rupture, pericarditis. Patient has a benign exam and does not appear to require any further imaging or laboratory testing at this time. EKG interpreted by me showed normal sinus rhythm without acute ST or T wave changes. Patient does not have any known risk factors for DVT. She is not currently on oral contraceptives. Patient was noted to have us what appears to be a viral gastroenteritis. She will be given medications for symptomatic treatment. She is also given breathing treatment due to asthma. Patient advised to follow-up with her primary care physician for recheck. She does not appear to require inpatient management at this time.Patient was advised to return if she felt worse. Labs Test 01/16/19 04:40 Urine Color Pale yellow Urine Appearance Slightly cloudy Urine pH 8 (4.5-8.0) Urine Specific [place] 1.010 (1.005-1.035) Urine Protein Negative (NEGATIVE) Urine Glucose (UA) Negative (NEGATIVE) Urine Ketones Negative (NEGATIVE) Urine Blood Negative (NEGATIVE) Urine Nitrite Negative (NEGATIVE) Urine Bilirubin Negative (NEGATIVE) Urine Urobilinogen Normal MG/DL (0.0-1.0) Urine Leukocyte Esterase 3+ (NEGATIVE) Urine RBC 2-4 /HPF (0 - 2) Urine WBC 2-4 /HPF (0 - 2) Urine Squamous Epithelial Cells Few /LPF (NONE/OCC) Urine Amorphous Sediment Few /LPF (NONE) Urine Bacteria Few /HPF (NONE) Urine Trichomonas Few /HPF (NONE) Urine HCG, Qualitative Negative (NEGATIVE) Last Vital Signs Date Time Temp Pulse Resp B/P (MAP) Pulse Ox O2 Delivery O2 Flow Rate FiO2 01/16/19 05:55 98.3 88 18 110/72 100 Room Air 01/16/19 04:23 21 Status: improved Disposition: HOME, SELF-CARE Condition: Stable Scripts Prednisone* (PREDNISONE*) 20 Mg Tablet 40 MG ORAL DAILY, #10 TAB Prov: Pepe Condon MD 01/16/19 Metronidazole* (FLAGYL*) 500 Mg Tablet 500 MG ORAL BID, #14 TAB Prov: Pepe Condon MD 01/16/19 Omeprazole (OMEPRAZOLE) 20 Mg Capsule. 20 MG ORAL DAILY, #30 CAP Prov: Pepe Condon MD 01/16/19 Patient Instructions: Nonspecific Chest Pain Pepe Condon MD Jan 16, 2019 06:25
[2019-01-16 06:30] VITALS: BP 110/72
--- NOTE | 2019-01-16 06:30 | NUR ---
ER Nurse Note: Pt seen, treated, medically cleared for discharge by ERMD. Discharge instuctions and prescriptions given with repeat verbalization by pt. Emphasized to follow up with primay care provider; take whole course of medication. Explained each medication and pt verified the location of pharmacy. All orders completed per ERMD orders. Pt a&ox4, VSS, no signs of distress. ID band removed. All questions answered per pt's questions. Pt refused sandwich, provided juice. Pt left with all belongings, left with own transportation.
== END 2019-01-16 06:30 | disposition home or self-care (01) ==
LOC: EMR 03:23
DX: R07.9 Chest pain, unspecified (principal); R11.10 Vomiting, unspecified; R19.7 Diarrhea, unspecified; Z88.6 Allergy status to analgesic agent; Z91.012 Allergy to eggs; Z91.011 Allergy to milk products
CPT/HCPCS: 81003; 81025; 94640; 94664; 99284; J7512; J7620